=== PATIENT | male | born 1965 | race Caucasian/White ===

== ENCOUNTER 2017-01-01 10:43 | Day surgery (SDC) | payer BC ==
[~2017-01-01] VITALS: Ht 175.3 cm; Wt 92.2 kg
[2017-01-01 11:47] VITALS: BP 138/85; PULSE 71; TEMP 98.2
[2017-01-01 12:30] VITALS: BP 116/85; PULSE 74; TEMP 97.7
[2017-01-01 12:45] VITALS: BP 130/91; PULSE 72
[2017-01-01 13:00] VITALS: BP 134/92; PULSE 63
[2017-01-01 13:19] VITALS: BP 102/69; PULSE 55
== END 2017-01-01 13:30 | disposition home or self-care (01) ==
LOC: SDCO 10:43
DX: Z12.11 Encounter for screening for malignant neoplasm of colon (principal); K57.30 Diverticulosis of large intestine without perforation or abscess without bleeding
CPT/HCPCS: J2250; J3010; J7030